=== PATIENT | male | born 1985 | race Asian ===

== ENCOUNTER 2019-06-07 21:51 | Emergency (ER) | payer SELFPAY ==
--- NOTE | 2019-06-07 21:57 | PDOC ---
Rapid Medical Evaluation Medical Evaluation: I have performed a brief in-person evaluation of this patient. The patient presents with a chief complaint of: noted blood in stool today (1 episode); mentions having hard stools for a few months; saw PCP last week and started ?stool softener; denies melena, rectal pain, fever, abd pain, vomiting Pertinent physical exam findings: In NAD I have ordered the following: Nothing The patient will proceed to the ED for further evaluation. 06/07/19 21:54
[2019-06-07 21:58] VITALS: BP 112/64; PULSE 78; TEMP 98; BMI 24.7
--- NOTE | 2019-06-07 22:51 | PDOC ---
*Physical Exam - Vital Signs Last Vital Signs Temp Pulse Resp BP Pulse Ox 98.0 F 78 16 112/64 100 06/07/19 21:56 06/07/19 21:56 06/07/19 21:56 06/07/19 21:56 06/07/19 21:56 Medical Decision Making - Medical Decision Making 06/07/19 22:50 patient seen by the advanced practice provider under my direct supervision. Ancillary testing reviewed as necessary. I agree with plan as outlined by the advanced practice provider. Discharge - Discharge Information Problems reviewed: Yes Clinical Impression/Diagnosis: Rectal bleeding - Follow up/Referral - Patient Discharge Instructions - Post Discharge Activity
--- NOTE | 2019-06-07 23:01 | PDOC ---
History of Present Illness - General Chief Complaint: Bleeding from Anus Stated Complaint: BLOOD IN STOOL Time Seen by Provider: 06/07/19 21:54 History Source: Patient Exam Limitations: No Limitations - History of Present Illness Initial Comments: 06/07/19 22:57 HISTORY OF PRESENT ILLNESS: 33-year-old male past medical history of constipation who presents emergency department for evaluation of dalton blood in his stool after bowel movement today. Patient noted he needed increased effort to pass his stool today. Reports mild straining. Patient noted when he stood up that the was dalton blood in the toilet when he wiped himself reported saturating for the paper. He denies any pain. He denies headaches, blurry vision, chest pain, shortness of breath, dizziness or lightheadedness. Patient denies trauma. No recent travel or sick contacts. PAST MEDICAL HISTORY: Denies past medical history SURGICAL HISTORY: Denies ALLERGIES: No known drug allergies REVIEW OF SYSTEMS General/Constitutional: Denies fever or chills. Denies weakness, weight change. HEENT: Denies change in vision. Denies ear pain or discharge. Denies sore throat. Cardiovascular: Denies chest pain or shortness of breath. Respiratory: Denies cough, wheezing, or hemoptysis. Gastrointestinal: See HPI Genitourinary: Denies dysuria, frequency, or change in urination. Musculoskeletal: Denies joint or muscle swelling or pain. Denies neck or back pain. Skin and breasts: Denies rash or easy bruising. Neurologic: Denies headache, vertigo, loss of consciousness, or loss of sensation. Psychiatric: Denies depression or anxiety. Endocrine: Denies increased thirst. Denies abnormal weight change. Hematologic/Lymphatic: Denies anemia, easy bleeding, or history of blood clots. Allergic/Immunologic: Denies hives or skin allergy. Denies latex allergy. PHYSICAL EXAM General Appearance: Well-appearing, appropriately dressed. No apparent distress , no intoxication. HEENT: EOMI, PERRLA, normal ENT inspection, normal voice, TMs normal, pharynx normal. No conjunctival pallor. No photophobia, scleral icterus. Respiratory/Chest: Lungs CTAB. No shortness of breath, chest tenderness, respiratory distress, accessory muscle use. No crackles, rales, rhonchi, stridor , wheezing, dullness Cardiovascular: RRR. S1, S2. No JVD, murmur, bradycardia, tachycardia. Vascular Pulses: Dorsalis-Pedis (R): 2+, Dorsalis-Pedis (L): 2+ Gastrointestinal/Abdominal: Normal bowel sounds. Abdomen soft, non-distended. No tenderness or rebound tenderness. No organomegaly, pulsatile mass, guarding, hernia, hepatomegaly, splenomegaly. Rectal: Skin tag hemorrhoids present to the 3:00, 6:00 and 8:00 positions. Firm stool felt in the vault. Prostate is within normal limits. No internal hemorrhoids or abnormalities palpated. No fissures present. Lymphatic: No adenopathy, tenderness. Past History - Past Medical History Allergies/Adverse Reactions: Allergies Allergy/AdvReac Type Severity Reaction Status Date / Time No Known Allergies Allergy Verified 06/07/19 21:58 COPD: No - Psycho Social/Smoking Cessation Hx Smoking History: Never smoked Have you smoked in the past 12 months: No Information on smoking cessation initiated: No Hx Alcohol Use: No Drug/Substance Use Hx: No *Physical Exam - Vital Signs Last Vital Signs Temp Pulse Resp BP Pulse Ox 98.0 F 78 16 112/64 100 06/07/19 21:56 06/07/19 21:56 06/07/19 21:56 06/07/19 21:56 06/07/19 21:56 ED Treatment Course - LABORATORY CBC & Chemistry Diagram: 06/07/19 23:00 06/07/19 23:00 Medical Decision Making - Medical Decision Making 06/07/19 23:00 A/P: 33-year-old male with dalton blood from the rectum today Abdominal exam is benign. Skin tag hemorrhoids presents. No anal fissures or abscesses palpated. Firm stool palpated in the vault Most likely ruptured external hemorrhoid given exam. CBC, CMP, guaiac Reassess 06/08/19 00:10 Laboratory Tests 06/07/19 06/07/19 06/07/19 23:00 23:00 23:00 WBC 8.9 RBC 4.51 Hgb 13.6 Hct 39.7 MCV 88.1 MCH 30.0 MCHC 34.1 RDW 13.0 Plt Count 309 MPV 7.9 Absolute Neuts (auto) 5.4 Neutrophils % 61.3 Lymphocytes % 31.0 Monocytes % 6.4 Eosinophils % 0.7 Basophils % 0.6 Nucleated RBC % 0 Sodium 136 Potassium 4.0 Chloride 104 Carbon Dioxide 26 BUN 23.0 H Creatinine 1.0 Est GFR (CKD-EPI)NonAf 97.08 Random Glucose 90 Calcium 9.2 Total Bilirubin 0.5 AST 23 ALT 32 Alkaline Phosphatase 55 Total Protein 8.0 Albumin 4.4 Stool Occult Blood Positive Guaiac positive brown stool. Remainder of laboratory testing is unremarkable. Laboratory testing is consistent with hemorrhoid which was noted on exam. I will discharge patient home to follow-up with his regular doctor as needed. I discussed the physical exam findings, ancillary test results and final diagnoses with the patient. I answered all of the patient's questions. The patient was satisfied with the care received and felt comfortable with the discharge plan and treatment plan. The patient will call their primary care physician within 24 hours to arrange follow-up and will return to the Emergency Department with any new, persistent or worsening symptoms. Discharge - Discharge Information Problems reviewed: Yes Clinical Impression/Diagnosis: Hemorrhoidal skin tags Condition: Stable Disposition: HOME - Admission No - Follow up/Referral - Patient Discharge Instructions Additional Instructions: Apply witch brant pads to hemorrhoid as needed for pain relief. Apply a thin layer of hydrocortisone ointment to hemorrhoid to help decrease swelling and persistent pain. Drink plenty of fluids. Drink one glass of prune juice every day. Eat lots of leafy green vegetables, berries, fruits and whole grains. Return to emergency department for severe rectal bleeding, increased pain, or any other concerns. - Post Discharge Activity
[2019-06-07 23:42] LABS: BASO % 0.6 % (0-2.0); EOS % 0.7 % (0-4.5); HEMATOCRIT 39.7 % (35.4-49); HEMOGLOBIN 13.6 GM/dL (11.7-16.9); MCHC 34.1 g/dl (32.0-35.9); MEAN CELL VOLUME 88.1 fl (80-96); MEAN PLT VOLUME 7.9 fl (7.5-11.1); MONO % 6.4 % (3.8-10.2); NEUT % 61.3 % (42.8-82.8); PLATELET COUNT 309 K/MM3 (134-434); RBC 4.51 M/mm3 (4.00-5.60); WHITE BLOOD COUNT 8.9 K/mm3 (4.0-10.0)
[2019-06-08 00:08] LABS: ALBUMIN 4.4 g/dl (3.4-5.0); BILIRUBIN,TOTAL 0.5 mg/dL (0.2-1); CALCIUM 9.2 mg/dL (8.5-10.1)
== END 2019-06-08 00:22 | disposition home or self-care (01) ==
LOC: JER 21:51 → SUPCPDRO 21:51 → JER 06-08 00:22
DX: K64.4 Residual hemorrhoidal skin tags (principal)
CPT/HCPCS: 36415; 80053; 82272; 85025; 99282-25